=== PATIENT | female | born 1955 | race Caucasian/White ===

== ENCOUNTER 2018-03-16 12:33 | Emergency (ER) | payer OTHER ==
[2018-03-16 13:04] LABS: #Basophils 0.1 thou/uL (0.0-0.2); #Eosinphils 0.2 thou/uL (0.0-0.7); #Lymphocytes 1.6 thou/uL (1.20-3.40); #Monocytes 0.7 thou/uL (0.11-0.59); %Basophils 1.3 % (0.0-1.0); %Eosinophils 2.7 % (0.0-10.0); %Lymphocytes 20.6 % (21.0-51.0); %Monocytes 8.6 % (0.0-10.0); %Neutrophils 66.8 % (42.0-75.0); Hemoglobin 13.3 g/dL (12.0-16.0); Mean Corpuscular HGB CONC 33.3 g/dL (32.0-36.0); Mean Corpuscular Hemoglobin 27.8 pg (27.0-31.0); Mean Corpuscular Volume 83.5 fL (78.0-98.0); Mean Platelet Volume 7.6 fL (7.4-10.4); Platelet Count 294 thou/uL (130-400); RBC Distribution Width 11.2 % (11.5-14.5); White Blood Cell (WBC) Count 7.5 thou/uL (4.8-10.8)
[2018-03-16 13:19] LABS: ALT (SGPT) 9 U/L (8-55); AST (SGOT) 40 U/L (5-34); Albumin 4.1 g/dL (3.5-5.0); Alkaline Phosphatase 126 U/L (40-150); Anion Gap 11 mmol/L (10-20); BUN (Urea Nitrogen) 16 mg/dL (9.8-20.1); Bilirubin, Total 0.4 mg/dL (0.2-1.2); CK (CPK) 61 U/L (29-168); Calc. Creatinine Clearance 0 mL/min (70-130); Calcium 9.2 mg/dL (7.8-10.44); Carbon Dioxide 27 mmol/L (22-29); Chloride 107 mmol/L (98-107); Estimated GFR-MDRD 66; Globulin 2.9 g/dL (2.4-3.5); Glucose 104 mg/dL (70-105); Lipase 17 U/L (8-78); Sodium 141 mmol/L (136-145)
[2018-03-16 13:23] LABS: CKMB 0.8 ng/mL (0-6.6); Troponin I Less than 0.010 ng/mL (< 0.028)
--- NOTE | 2018-03-16 13:49 | RAD ---
PORTABLE CHEST 1 VIEW: Date: 03/16/18 Time: 1258 hours HISTORY: Chest pain. FINDINGS: Comparison made with exam of 03/05/14. The heart size is normal. The lungs are expanded without focal areas of consolidation, pneumothoraces , or pleural effusions. IMPRESSION: No radiographic evidence of acute cardiopulmonary process. POS: [facility]
[2018-03-16 16:50] LABS: Troponin I Less than 0.010 ng/mL (< 0.028)
--- NOTE | 2018-03-17 17:01 | EKG ---
Test Reason : Blood Pressure : / mmHG Vent. Rate : 092 BPM Atrial Rate : 092 BPM P-R Int : 168 ms QRS Dur : 090 ms QT Int : 358 ms P-R-T Axes : 069 026 053 degrees QTc Int : 442 ms Normal sinus rhythm Normal ECG Confirmed by JUSTINO XIE, DR. Ellis ([id number]) on 03/17/2018 5:00:45 PM Referred By: Confirmed By:DR. Rhonda BADILLO MD
--- NOTE | 2018-03-17 17:03 | EKG ---
Test Reason : Blood Pressure : / mmHG Vent. Rate : 075 BPM Atrial Rate : 075 BPM P-R Int : 162 ms QRS Dur : 092 ms QT Int : 392 ms P-R-T Axes : 054 008 031 degrees QTc Int : 437 ms Normal sinus rhythm Normal ECG Confirmed by JUSTINO XIE, DR. Ellis ([id number]) on 03/17/2018 5:02:56 PM Referred By: Confirmed By:DR. Rhonda BADILLO MD
== END 2018-03-16 17:23 | disposition home or self-care (01) ==
LOC: ERS 12:33
DX: R07.9 Chest pain, unspecified (principal); I10 Essential (primary) hypertension; Z79.899 Other long term (current) drug therapy
CPT/HCPCS: 36415; 71045; 80053; 82553; 83690; 84484; 85025; 93005; 94760